=== PATIENT | male | born 1980 | race Caucasian/White ===

== ENCOUNTER → 2022-02-05 | Outpatient (CLI) | payer OTHER ==
--- NOTE | 2022-02-05 15:45 | US ---
EXAMINATION TYPE: US kidneys/renal and bladder DATE OF EXAM: 02/05/2022 COMPARISON: NONE CLINICAL HISTORY: R31.9 HEMATURIA. Hematuria. EXAM MEASUREMENTS: Right Kidney: 11.5 x 4.9 x 4.9 cm Left Kidney: 11.7 x 5.5 x 5.9 cm Right Kidney: Renal pelvis appears slightly dilated. Lower collecting system appears slightly dilated -anechoic elongating appearance lower pole. Left Kidney: No hydronephrosis or masses seen. Limited visibility of lower pole due to gas. Bladder: Appears anechoic. Bilateral Jets seen: Yes IMPRESSION: 1. Questionable prominence of the inferior pole right renal collecting system. 2. Acute change is not otherwise apparent.
== END | disposition home or self-care (01) ==
LOC: RADUSWWP 14:58
PROVIDERS: ATTEND Internal Medicine
DX: R31.9 Hematuria, unspecified (principal)
CPT/HCPCS: 76770